=== PATIENT | female | born 1945 | race Caucasian/White ===

== ENCOUNTER 2022-03-07 08:50 | Outpatient (CLI) | payer MEDICARE, SELFPAY ==
--- NOTE | ~2022-03-07 | DEXA_ITS ---
Bone Density Report Name: BYRON MARTINEZ Age: 76 Sex: Female Ethnicity: White Date of : 1945 Indication: postmenopausal; screening for osteoporosis; height loss; prior fracture; Referring Provider: LIZANDRO JOSE Study: Bone densitometry was performed. Exam Date: March 07, 2022 Accession number: [id number] Bone Density: Region BMD T-score Z-score Classification AP Spine(L1-L4) 0.858 -1.7 0.7 Osteopenia Femoral Neck (Left) 0.568 -2.5 -0.5 Osteoporosis Total Hip (Left) 0.648 -2.4 -0.7 Osteopenia World Health Organization criteria for BMD impression classify patients as: Normal (T-score at or above -1.0), Osteopenia (T-score between -1.0 and -2.5), or Osteoporosis (T-score at or below -2.5). 10-year Fracture Risk: FRAX not reported because: Some T-score for Spine Total or Hip Total or Femoral Neck at or below -2.5 Clinical Information Provided by Patient: Has had a low trauma fracture Smokes Has used the following medications: Vitamin D Patient maximum height was 62 Menopause Age: 62 No regular weight bearing exercise Drinks caffeinated beverages Onset of menses at age 16 Number of children 2 Impression: The patient has established osteoporosis, based on the Left Femoral Neck T-score and the existence of a prior fracture. The patient has risk factors, including: smoking, previous fracture. Discussion: HIGH RISK OF FRACTURE. BONE DENSITY IS UNDESIRABLY LOW AT ONE OR MORE SKELETAL SITES, CONSISTENT WITH POSTMENOPAUSAL OSTEOPOROSIS. This patient's lowest T-score, in a patient who has previously fractured, meets the World Health Organization's (WHO) criteria for severe osteoporosis. In untreated patients, the risk of osteoporotic fracture increases approximately two-fold for each 1.0 SD decrease in T-score. Low bone density is not the only risk factor for fracture; also consider factors such as patient's age, frailty or poor health, risk of falling, risk of injury, previous osteoporotic fracture, family history of osteoporosis, cigarette smoking, low body weight, etc. Not everyone with low bone mineral density has osteoporosis; osteomalacia and other metabolic bone disorders should also be considered. Patients who have osteoporosis should be evaluated for specific diseases and conditions (secondary causes) that may cause or contribute to bone loss. The [place] [employer]ocr[employer] (AACE) and National Osteoporosis Foundation (NOF) recommend pharmacologic intervention for all postmenopausal women whose T-score is in this range. The patient should follow a healthful lifestyle (good nutrition with adequate calcium and vitamin D, and appropriate weight-bearing exercise). Follow-Up: Consider a repeat BMD and Vertebral Fracture Assessment (VFA) exam in 2 years or sooner if medically necessary, to reassess this patient's stat
== END 2022-03-07 08:51 | disposition home or self-care (01) ==
LOC: ANHIMG 08:53
PROVIDERS: Visit Provider Orthopaedic Surgery
DX: M81.0 Age-related osteoporosis without current pathological fracture (principal); M85.88 Other specified disorders of bone density and structure, other site; M85.852 Other specified disorders of bone density and structure, left thigh
CPT/HCPCS: 77080

== ENCOUNTER 2023-06-09 00:41 | Day surgery (SDC) | payer MEDICARE, SELFPAY ==
[2023-05-26 13:16] VITALS: BMI 19.1
[2023-06-09 09:20] VITALS: BP 121/66; PULSE 98; RESP 18; TEMP 36.3; O2SAT 95
[2023-06-09] MEDS: LACTATED RINGERS 1,000 ML 150 ML IV CONT (09:36)
--- NOTE | 2023-06-09 10:07 | P.PNAN_ITS ---
Anes - Initial Pre Proc Eval Procedure: Operation Date: 06/09/23 10:30 Proposed Procedures p Colonoscopy - Herbie Velarde MD Date/Time: 06/09/23 10:07 Surgeon: Herbie Velarde MD Pre Op Diagnosis: other fecal abnormalities Patient Data Age: 77 Gender: F Height: 1.5 m Weight: 45.2 kg Last Vital Signs Temp 97.4 F L 06/09/23 09:20 Pulse 98 06/09/23 09:20 Resp 18 06/09/23 09:20 BP 121/66 06/09/23 09:20 Pulse Ox 95 06/09/23 09:20 O2 Del Method Room Air 06/09/23 09:20 Allergies Allergy/AdvReac Type Severity Reaction Status Date / Time No Known Allergies Allergy Verified 06/09/23 09:19 Home Medications Medication Instructions Recorded Confirmed Type aspirin 81 mg tablet,delayed 81 mg PO DAILY 05/26/23 06/09/23 History release atorvastatin 40 mg tablet 40 mg PO DAILY 05/26/23 06/09/23 History Patient hx anesthesia problems: none Family hx anesthesia problems: none Results Review: All pre-operative results and documents have been reviewed as part of the pre- operative evaluation. [facility], [facility] Social History Social History Smoking packs per day: 1 Smoking cigarettes per day: 20.0 Years smoked: 60 Smoking pack-years: 60.00 Smoking status: Current every day smoker Tobacco type: cigarettes Alcohol intake: current Drinks per week: 7 Alcohol use details: ONE GLASS WINE WITH DINNER DAILY Substance use: never Substance use type: does not use Living arrangements: with family Spiritual care concerns: No Anes - Eval Final PreProcedure Day of Procedure 06/09/23 10:07 Patient weight: normal Heart: regular rate and rhythm Lungs: clear to auscultation Airway: Mallampati scale class II Neurological: alert and oriented Last oral intake: >/= 8 hours ASA classification: II Emergent: no Anesthetic plan: proceed Anesthesia type and monitoring: general GIVS and standard monitoring Results Review: All pre-operative results and documents have been reviewed as part of the pre- operative evaluation. Informed Consent: The patient's anesthetic plan and its attendant risks and benefits were discussed with the patient/family/POA. Questions were solicited and answers provided to the satisfaction of the patient/family/POA.
--- NOTE | 2023-06-09 10:27 | PM.HPGS ---
History of Present Illness History of Present Illness Consent: Risks, benefits, and alternatives have been discussed and questions answered. Patient agrees to proceed with procedure. Chief complaint: other fecal abnormalities Narrative: Khushi Angelo is a 77 year old female here for first colonoscopy, had + cologuard Review of Systems Review of Systems: All systems reviewed & are unremarkable except as noted in HPI and below PMFSH Past Medical History Medical History (Updated 06/09/23 @ 10:28 by Herbie Velarde MD) Positive colorectal cancer screening using Cologuard test Positive colorectal cancer screening using Cologuard test Social History Social History Smoking packs per day: 1 Smoking cigarettes per day: 20.0 Years smoked: 60 Smoking pack-years: 60.00 Smoking status: Current every day smoker Tobacco type: cigarettes Alcohol intake: current Drinks per week: 7 Alcohol use details: ONE GLASS WINE WITH DINNER DAILY Substance use: never Substance use type: does not use Living arrangements: with family Spiritual care concerns: No Meds Home Medications and Allergies Home Medications Medication Instructions Recorded Confirmed Type aspirin 81 mg tablet,delayed 81 mg PO DAILY 05/26/23 06/09/23 History release atorvastatin 40 mg tablet 40 mg PO DAILY 05/26/23 06/09/23 History Allergies Allergy/AdvReac Type Severity Reaction Status Date / Time No Known Allergies Allergy Verified 06/09/23 09:19 Vital Signs Vital Signs - 24 hr 06/09/23 09:20 Temperature 97.4 F L Pulse Rate 98 Respiratory Rate 18 Blood Pressure 121/66 Pulse Oximetry 95 Oxygen Delivery Room Air Exam Const: General: comfortable and no acute distress HENMT: Face/Nose/Sinus: Normal nares present Eyes: General: appearance normal, both eyes and all related structures Neck: Neck: no JVD Resp: Auscultation: clear to auscultation bilaterally Cardio: Rate: regular rate Rhythm: regular rhythm GI: Inspection: non-distended GI Palp: Yes Soft to palpation Skin: General skin exam: normal color Neuro: General: gait normal Speech: normal speech Extrem: General: normal to inspection Psych: Mental Status: mental status grossly normal Assessment and Plan Assessment and plan (1) Positive colorectal cancer screening using Cologuard test: Code(s): R19.5 - Other fecal abnormalities Status: Acute Assessment and Plan: colonoscopy
[2023-06-09 10:49] VITALS: BP 112/51; PULSE 82; RESP 18; O2SAT 98
[2023-06-09 10:52] VITALS: BP 114/46; PULSE 80; RESP 18; O2SAT 100
== END 2023-06-09 11:13 | disposition home or self-care (01) ==
PROVIDERS: PCP Family Medicine; Visit Provider Internal Medicine Gastroenterology
PROC: 0DJD8ZZ Inspection of Lower Intestinal Tract, Via Natural or Artificial Opening Endoscopic (ICD-10-PCS; CPT 45378; principal; 2023-06-09 10:30)
DX: D12.2 Benign neoplasm of ascending colon (principal); K64.8 Other hemorrhoids; K57.30 Diverticulosis of large intestine without perforation or abscess without bleeding; F17.210 Nicotine dependence, cigarettes, uncomplicated; Z79.82 Long term (current) use of aspirin
CPT/HCPCS: 45385; 88305; J2704; J7120

== ENCOUNTER 2023-11-24 09:50 | Outpatient (CLI) | payer MEDICARE, SELFPAY ==
--- NOTE | ~2023-11-24 | MR_ITS ---
EXAMINATION: MR knee LT wo con DATE: 11/24/2023 10:21 INDICATION: Left knee pain TECHNIQUE: Magnetic resonance imaging (MRI) of the left knee was performed without intravenous contra st. Sequences included coronal PD-weighted FSE, coronal PD-weighted FS FSE, sagittal T2-weighted FSE , sagittal PD-weighted FS FSE and axial PD weighted fat saturated FSE. COMPARISON: None. FINDINGS: Medial compartment: Medial extrusion of the medial meniscal body with radial tear near the root of the posterior horn wit h 12 mm separation of the tear margins. There is thickening and prominent increased intrasubstance si gnal at the extruded meniscal body with increased signal contacting the articular surface at the free edge on only a single image which remains equivocal for mucoid degeneration versus small tear of ind eterminate morphology. Extensive full/near full-thickness cartilage loss along the anterior, central portion of the posterior weightbearing medial femoral condyle and at the central, anterior and medial aspect of the medial tibial plateau. Minimal amount of scattered subarticular edema-like signal rojas ge. There is some early remodeling of the anteromedial margin of the medial tibial plateau. Moderate size marginal osteophyte are present. Lateral compartment: Lateral meniscus is normal. There is partial thickness cartilage loss involving greater than 50% the cartilage thickness along the posterior weightbearing lateral femoral condyle. There is mild subartic ular cystlike change at the lateral margin of the junction of the central to posterior weightbearing lateral femoral condyle. There is a deep chondral fissure involving greater than 50% the cartilage th ickness at the posterior aspect of the lateral tibial plateau. Patellofemoral compartment: There is a horizontal deep chondral fissure without degenerative subchondral changes extending across the inferior aspect of the patellar apical ridge and immediately adjacent medial and lateral patella r facets. Partial-thickness chondral ulceration and deep fissuring at the trochlea with small central subchondral osteophyte along the trochlear groove, minimal subarticular edema-like signal change at the medial trochlea and without degenerative subchondral changes at the lateral trochlea. Ligaments and tendons: Anterior and posterior cruciate ligaments are normal. Medial collateral ligament is normal. There is linear longitudinal split tearing along the fibular collateral ligament without evident transverse pa rtial or full-thickness tear. The extensor mechanism is normal. The visualized medial and lateral ham string tendons as well as the iliotibial band are normal. Fluid: Small left knee joint effusion with mild to moderate synovitis at the suprapatellar pouch. Additional mild synovitis and a small Méndez's cyst. No loose osteochondral bodies identified. Osseous/other: Normal marrow signal aside from the previous noted mild degenerative subchondral changes. No fracture or pathologic marrow replacing process. IMPRESSION: 1. Radial tear near the posterior root of the medial meniscus with secondary medial extrusion of the meniscal body where there is thickening and increased signal equivocal for mucoid degeneration versus additional tear of indeterminate morphology. 2. Tricompartmental osteoarthritis, severe with extensive high-grade chondral malacia the medial comp artment and mild with additional moderate and high-grade chondromalacia in the lateral and patellofem oral compartments. 3. Mild partial split tearing along the fibular collateral ligament without evident transverse partia l or full-thickness tear. 4. Likely reactive small left knee joint effusion and small Méndez's cyst. Reviewed, dictated and finalized at location A. IMPRESSION:
== END 2023-11-24 09:51 | disposition home or self-care (01) ==
PROVIDERS: PCP Family Medicine; Visit Provider Orthopaedic Surgery
DX: M25.562 Pain in left knee (principal); S83.242A Other tear of medial meniscus, current injury, left knee, initial encounter; M17.12 Unilateral primary osteoarthritis, left knee; M94.262 Chondromalacia, left knee; S83.422A Sprain of lateral collateral ligament of left knee, initial encounter; M25.462 Effusion, left knee; M71.22 Synovial cyst of popliteal space [Baker], left knee
CPT/HCPCS: 73721